=== PATIENT | male | born 1960 | race Caucasian/White ===

== ENCOUNTER → 2017-01-01 | Outpatient (CLI) | payer OTHER | LOC: CIMAGING 15:38 | PROVIDERS: ATTEND Family Medicine | DX: Z01.818 Encounter for other preprocedural examination (principal); M06.9 Rheumatoid arthritis, unspecified; E03.9 Hypothyroidism, unspecified | CPT/HCPCS: 71020-PO ==

== ENCOUNTER 2017-03-15 07:14 | Emergency (ER) | payer OTHER ==
[2017-03-15 07:30] VITALS: BP 156/101; PULSE 80; RESP 20; O2SAT 98
--- NOTE | 2017-03-15 07:45 | EDPHY ---
H & P Time Seen by Provider: 03/15/17 07:20 HPI/ROS: CHIEF COMPLAINT: Right knee pain HISTORY OF PRESENT ILLNESS: Patient is had a recent prolonged hospitalization for left elbow infection which has left him weak generally compared to his previous state. Over the past month he has difficulty getting out of a chair because of weakened arm strength. He has had chronic bilateral lower extremity edema for the past 5-6 weeks which he attributes to being less mobile than previously with his recent hospitalization. 2 days ago on he was squatting down when he developed sudden medial right knee pain which is worse with weight-bearing or flexion or extension of his right knee. It was not associated with swelling. No weakness or numbness in the right foot. No skin changes or externally visible knee swelling. Presents today with continued pain which is mild at rest but moderate to severe with the above exacerbating factors. REVIEW OF SYSTEMS: No chest pain or shortness of breath or fever. PAST MEDICAL HISTORY: Includes rheumatoid arthritis, recent prolonged hospitalization for left elbow infection, hypothyroid, asthma, hypertension. Social history: , here with spouse General Appearance: Alert and conversant, cooperative. Right leg exam: Lower leg is warm not hot, normal motor and sensory in the foot. Well perfused. Compartments are soft in the thigh and the calf. Right knee does not have joint effusion. Stable to varus and valgus stress and Bishop's is negative for ACL instability. No bony tenderness but he has medial joint line tenderness and pain medially with valgus stress. Lani type test with compression of medial compartment causes pain, this is a modified test performed with the patient supine because of his difficulty with moving in the bed. He can extend fully and flex fully actively. No calf tenderness. Skin is normal without evidence of redness or increased heat compared to other leg, or other lesions. He does have bilateral lower extremity edema which is symmetric. Emergency Department course/MDM: I think that fracture is unlikely as he does not really have a mechanism and has no bony tenderness. He does not have physical exam evidence of joint instability or acute ACL or PCL tear. He does have joint line tenderness medially and evidence of MCL sprain on examination. I warned him that a meniscal injury is possible but he does not have a large joint effusion and he is not locking up, I do not think he emergently needs orthopedic consultation from the emergency department. I think septic joint is unlikely. He had relatively sudden onset of pain with only tenderness along the medial joint line, DVT or arterial occlusion was considered but I think both are unlikely given the total clinical picture. Patient declined pain medication. Patient declined a knee immobilizer as he thinks that might make him more unsteady as he tries to get up out of a chair; he has follow-up with his orthopedist for his elbow this coming Friday and can address his knee then if it is still symptomatic. Smoking Status: Former smoker Constitutional: Initial Vital Signs Temperature (C) 36.6 C 03/15/17 07:26 Heart Rate 80 03/15/17 07:26 Respiratory Rate 20 03/15/17 07:26 Blood Pressure 156/101 H 03/15/17 07:26 O2 Sat (%) 98 03/15/17 07:26 O2 Delivery Mode Room Air Allergies/Adverse Reactions: latex [Latex] Allergy (Intermediate, Verified 03/15/17 07:29) ITCH Home Medications: Medication Instructions Recorded Levothyroxine [Synthroid IVP 125 mcg PO 01/04/12 Syringe (RX)] Omeprazole 20 mg PO 01/04/12 ACTEMRA 09/10/15 Advil 09/10/15 Cephalexin 03/15/17 Folic Acid 03/15/17 Lisinopril 03/15/17 Methotrexate 03/15/17 Rifampin 03/15/17 MDM/Departure - Depart Disposition: Home, Routine, Self-Care Clinical Impression: Left knee sprain Qualifiers: Encounter type: initial encounter Involved ligament of knee: medial collateral ligament Qualified Code(s): S83.412A - Sprain of medial collateral ligament of left knee, initial encounter Condition: Good Instructions: Knee Sprain (ED) Referrals: Justice Beltrán DO [Primary Care Provider] - As per Instructions
[2017-03-15 08:09] VITALS: TEMP 97.9
== END 2017-03-15 07:56 | disposition home or self-care (01) ==
LOC: CED 07:14
DX: S83.411A Sprain of medial collateral ligament of right knee, initial encounter (principal); I10 Essential (primary) hypertension; J45.909 Unspecified asthma, uncomplicated; Z87.891 Personal history of nicotine dependence; Z91.040 Latex allergy status; X58.XXXA Exposure to other specified factors, initial encounter

== ENCOUNTER 2017-05-24 07:38 | Emergency (ER) | payer OTHER ==
[2017-05-24 07:47] VITALS: TEMP 97.5
[2017-05-24] MEDS ORDERED: NS 1,000 ML IV ONE (07:54)
[2017-05-24] MEDS ORDERED: KETOROLAC 30 MG/1 ML SDV IVP ONE (07:54)
--- NOTE | 2017-05-24 08:05 | EDPHY ---
HPI/HX/ROS/PE/MDM Narrative: CHIEF COMPLAINT: Left flank pain HPI: The patient is a 56-year-old male with history of rheumatoid arthritis and previous back surgery. He has been in his usual state of health until he woke early this morning with severe left back pain. He describes the pain as dull and very different from previous back pain. He denies injury, fall or trauma. He denies fever or difficulty urinating. He has no history of kidney stones. He has not taken any pain medicine for relief. The patient states that he is unable to find a comfortable position but change in movement does not affect pain dramatically. REVIEW OF SYSTEMS: Aside from elements discussed in the HPI, a comprehensive 10-point review of systems was reviewed and is negative. PMH: Includes rheumatoid arthritis, previous back surgery, history of elbow infection with replacement SOCIAL HISTORY: . Denies alcohol or drug abuse. PHYSICAL EXAM: General:Patient is alert, appears quite uncomfortable and slightly pale. ENT:Eyes are normal to inspection. ENT inspection normal. Neck: Normal inspection. Full range of motion. Respiratory:No respiratory distress. Breath sounds normal bilaterally. Cardiovascular: Regular rate and rhythm. Strong peripheral pulses. Normal cap refill. Abdomen:The abdomen is nontender to palpation. There are no peritoneal signs. There are normal bowel sounds. No pulsatile mass. Back: Normal to inspection. Mild left CVA tenderness to palpation. Skin: Normal color. No rash. Warm and dry. Extremities: Normal appearance. Full range of motion. Neuro: Oriented x3. Normal motor function. Normal sensory function. ED Course: CT shows a 4.5 mm stone in the mid left ureter with mild hydro. MDM: Patient was treated with IV ketorolac, normal saline and Dilaudid. On re- evaluation at 9:00 a.m., he is feeling much better and is comfortable with the plan to go home. MDM: I see no evidence of ruptured AAA, sciatica, diverticulitis, shingles, bowel obstruction. - Data Points Imaging: Discussed imaging studies w/ call center manager Radiologist, I viewed and interpreted images myself Laboratory Results: Laboratory Results 05/24/17 08:00 05/24/17 08:00 05/24/17 05/24/17 08:00 08:00 WBC 5.37 10^3/uL 10^3/uL (3.80-9.50) RBC 4.76 10^6/uL 10^6/uL (4.40-6.38) Hgb 12.8 g/dL L g/dL (13.7-17.5) Hct 38.7 % L % (40.0-51.0) MCV 81.3 fL L fL (81.5-99.8) MCH 26.9 pg L pg (27.9-34.1) MCHC 33.1 g/dL g/dL (32.4-36.7) RDW 17.3 % H % (11.5-15.2) Plt Count 227 10^3/uL 10^3/uL (150-400) MPV 8.8 fL fL (8.7-11.7) Neut % (Auto) 40.9 % % (39.3-74.2) Lymph % (Auto) 37.6 % % (15.0-45.0) [facility] % (Auto) 12.5 % % (4.5-13.0) Eos % (Auto) 6.9 % % (0.6-7.6) Baso % (Auto) 1.9 % H % (0.3-1.7) Nucleat RBC Rel Count 0.0 % % (0.0-0.2) Absolute Neuts (auto) 2.20 10^3/uL 10^3/uL (1.70-6.50) Absolute Lymphs (auto) 2.02 10^3/uL 10^3/uL (1.00-3.00) Absolute Monos (auto) 0.67 10^3/uL 10^3/uL (0.30-0.80) Absolute Eos (auto) 0.37 10^3/uL 10^3/uL (0.03-0.40) Absolute Basos (auto) 0.10 10^3/uL 10^3/uL (0.02-0.10) Absolute Nucleated RBC 0.00 10^3/uL 10^3/uL (0-0.01) Immature Gran % 0.2 % % (0.0-1.1) Immature Gran # 0.01 10^3/uL 10^3/uL (0.00-0.10) Sodium 142 mEq/L mEq/L (134-144) Potassium 4.0 mEq/L mEq/L (3.5-5.2) Chloride 112 mEq/L H mEq/L (97-110) Carbon Dioxide 19 mEq/l L mEq/l (22-31) Anion Gap 11 mEq/L mEq/L (8-16) BUN 19 mg/dL mg/dL (7-23) Creatinine 1.0 mg/dL mg/dL (0.7-1.3) Estimated GFR > 60 Glucose 84 mg/dL mg/dL (70-100) Calcium 9.0 mg/dL mg/dL (8.5-10.4) Medications Given: Discontinued Medications Hydromorphone HCl (Dilaudid) 0.5 mg IVP EDNOW ONE Stop: 05/24/17 08:26 Last Admin: 05/24/17 08:34 Dose: 0.5 mg Sodium Chloride (Ns) 1,000 mls @ 0 mls/hr IV EDNOW ONE; Wide Open PRN Reason: Protocol Stop: 05/24/17 07:55 Last Admin: 05/24/17 08:02 Dose: 1,000 mls Ketorolac Tromethamine (Toradol) 30 mg IVP EDNOW ONE Stop: 05/24/17 07:55 Last Admin: 05/24/17 08:04 Dose: 30 mg Ondansetron HCl (Zofran) 4 mg IVP EDNOW ONE Stop: 05/24/17 08:26 Last Admin: 05/24/17 08:32 Dose: 4 mg General Time Seen by Provider: 05/24/17 07:50 Initial Vital Signs: Initial Vital Signs Temperature (C) 36.4 C 05/24/17 07:42 Heart Rate 68 05/24/17 07:42 Respiratory Rate 22 H 05/24/17 07:42 Blood Pressure 125/83 H 05/24/17 07:42 O2 Sat (%) 98 05/24/17 07:42 O2 Delivery Mode Room Air Allergies/Adverse Reactions: latex [Latex] Allergy (Intermediate, Verified 05/24/17 07:47) ITCH Home Medications: Medication Instructions Recorded Levothyroxine [Synthroid IVP 125 mcg PO 01/04/12 Syringe (RX)] Omeprazole 20 mg PO 01/04/12 ACTEMRA 09/10/15 Advil 09/10/15 Cephalexin 08/05/17 Folic Acid 03/15/17 Lisinopril 03/15/17 Methotrexate 03/15/17 Rifampin 03/15/17 Ondansetron Odt [Zofran Odt] 4 mg PO Q4PRN PRN #15 tab 05/24/17 oxyCODONE/APAP 5/325 [Percocet 1 - 2 tab PO Q4H PRN #20 tab 05/24/17 5/325] Departure - Departure Disposition: Home, Routine, Self-Care Clinical Impression: Renal colic on left side Condition: Good Instructions: Kidney Stones (ED) Additional Instructions: Followup with your urologist within one week. Return to the emergency apartment for fever, severe pain, inability to urinate or other concerns. Strain urine to try and catch the kidney stone and bring this to the urology appointment. Referrals: Justice Beltrán DO [Primary Care Provider] - As per Instructions Santo Flores MD [Medical Doctor] - As per Instructions Prescriptions: Ondansetron Odt [Zofran Odt] 4 mg PO Q4PRN PRN #15 tab PRN Reason: Nausea oxyCODONE/APAP 5/325 [Percocet 5/325] 1 - 2 tab PO Q4H PRN #20 tab PRN Reason: Pain, Severe
[2017-05-24 08:07] LABS: % IMMATURE GRANULYOCYTES 0.2 % (0.0-1.1); ABSOLUTE IMMATURE GRANULOCYTES 0.01 10^3/uL (0.00-0.10); ADD DIFF? NO; ADD MORPH? NO; ADD SCAN? NO; ATYPICAL LYMPHOCYTE FLAG 0 (0-99); FRAGMENT RBC FLAG 0 (0-99); HEMATOCRIT 38.7 % (40.0-51.0); HEMOGLOBIN 12.8 g/dL (13.7-17.5); LEFT SHIFT FLG 0 (0-99); LIPEMIA HEMOLYSIS FLAG 80 (0-99); MEAN CELL HEMOGLOBIN 26.9 pg (27.9-34.1); MEAN CELL HEMOGLOBIN CONCENTR. 33.1 g/dL (32.4-36.7); MEAN CELL VOLUME 81.3 fL (81.5-99.8); MEAN PLATELET VOLUME 8.8 fL (8.7-11.7); PLATELET CLUMPS FLAG 0 (0-99); PLATELET COUNT 227 10^3/uL (150-400); RED BLOOD CELL COUNT 4.76 10^6/uL (4.40-6.38); RED CELL DISTRIBUTION WIDTH 17.3 % (11.5-15.2)
[2017-05-24] MEDS ORDERED: HYDROmorphONE/DILAUDID 1 MG/ML INJ IVP ONE (08:25)
[2017-05-24] MEDS ORDERED: ONDANSETRON 4 MG/2 ML VIAL IVP ONE (08:25)
[2017-05-24 08:29] LABS: ANION GAP 11 mEq/L (8-16); CARBON DIOXIDE 19 mEq/l (22-31); CHLORIDE 112 mEq/L (97-110); GLOMERULAR FILTRATION RATE > 60; GLUCOSE 84 mg/dL (70-100); SODIUM 142 mEq/L (134-144)
[2017-05-24 08:40] VITALS: RESP 18
[2017-05-24 09:01] VITALS: BP 148/98; PULSE 52; O2SAT 98
== END 2017-05-24 09:14 | disposition home or self-care (01) ==
LOC: CED 07:38
DX: N23 Unspecified renal colic (principal); E86.9 Volume depletion, unspecified
CPT/HCPCS: 74176-PO; 80048-PO; 85025-PO; 96374; J1170; J1885; J2405